=== PATIENT | female | born 1985 | race Caucasian/White ===

== ENCOUNTER 2020-01-09 13:23 | Emergency (ER) | payer BC ==
[~2020-01-09] VITALS: Ht 167.6 cm; Wt 86.0 kg
[2020-01-09 13:55] LABS: BASOPHILS # (AUTO) 0.1 X10'3 (0-0.2); BASOPHILS % (AUTO) 0.4 % (0-1); EOSINOPHILS # (AUTO) 0.2 X10'3 (0-0.9); EOSINOPHILS % (AUTO) 1.7 % (0-6); HEMATOCRIT 44.6 % (35.0-45.0); HEMOGLOBIN 14.8 g/dl (12.0-16.0); LYMPHOCYTES # (AUTO) 1.8 X10'3 (1.1-4.8); LYMPHOCYTES % (AUTO) 15.1 % (21-51); MEAN CORPUSCULAR HGB CONC 33.2 g/dL (33.0-36.5); MEAN CORPUSCULAR VOLUME 93.4 FL (78-98); MONOCYTES # (AUTO) 0.5 X10'3 (0-0.9); MONOCYTES % (AUTO) 4.6 % (2-12); NEUTROPHILS # (AUTO) 9.2 X10'3 (1.8-7.7); NEUTROPHILS % (AUTO) 78.2 % (42-75); PLATELET COUNT 299 X10'3 (140-440); RED BLOOD COUNT 4.77 X10'6 (4.20-5.60); RED CELL DISTRIBUTION WIDTH 12.6 % (11.5-14.5); WHITE BLOOD COUNT 11.8 X10'3 (4.5-11.0)
[2020-01-09 14:01] LABS: URINE HCG NEGATIVE (NEG)
[2020-01-09 14:06] LABS: CLARITY,URINE CLOUDY (Clear); COLOR,URINE ORANGE (Yellow)
[2020-01-09 14:11] LABS: ALANINE AMINOTRANSFERASE 36 U/L (12-78); ALBUMIN 4.1 G/DL (3.4-5.0); ALBUMIN/GLOBULIN RATIO 1.1 (1.1-1.5); ALKALINE PHOSPHATASE 44 IU/L (46-116); ANION GAP 10 (8-16); ASPARTATE AMINO TRANSFERASE 19 U/L (10-37); BILIRUBIN,TOTAL 0.4 MG/DL (0.1-1.0); BLOOD UREA NITROGEN 11 MG/DL (7-18); BUN/CREATININE RATIO 11.6 (6.6-38.0); CALCIUM 8.6 MG/DL (8.5-10.1); CHLORIDE 108 MMOL/L (99-107); CREATININE 0.95 MG/DL (0.40-0.90); GLUCOSE 130 MG/DL (70-104); LIPASE 98 U/L (73-393); POTASSIUM 3.7 MMOL/L (3.5-5.1); SODIUM 144 MMOL/L (135-145); TOTAL PROTEIN 7.9 G/DL (6.4-8.2); eGFR 67 ML/MIN
[2020-01-09 14:13] LABS: UA COLLECTION TYPE CLN CATCH MIDSTREAM
[2020-01-09 14:33] LABS: MUCUS STRANDS MODERATE /LPF (Neg); SQUAMOUS EPITHELIAL CELL,UR MANY /LPF (FEW)
[2020-01-09 14:36] LABS: BACTERIA,URINE FEW /HPF (Neg); RBC,URINE TNTC /HPF (0-2)
[2020-01-09 14:37] LABS: CAL OXALATE CRYSTALS 4+ /HPF (NEGATIVE)
--- NOTE | 2020-01-09 15:41 | NUR ---
pt is resting quietly on gurney, waiting to be evaluated by provider
[2020-01-09] MEDS ORDERED: ketorolac tromethamine 15mg/ml inj. IV ONE (16:10)
[2020-01-09] MEDS ORDERED: ondansetron/PF 4mg/2ml inj IV ONE ×2 (16:10→17:40)
[2020-01-09] MEDS ORDERED: morphine 2 MG/ML inj. syringe IV ONE (17:40)
[2020-01-09] MEDS ORDERED: normal saline 1000ML IV soln IVB ONE (17:40)
[2020-01-09] MEDS ORDERED: HYDR-4383 PO (19:30)
[2020-01-09] MEDS ORDERED: FLO0.4C PO (19:30)
[2020-01-09] MEDS ORDERED: ONDA4TAB6 PO (19:30)
[2020-01-09 19:55] VITALS: BP 115/67
== END 2020-01-09 19:57 | disposition home or self-care (01) ==
LOC: ER 13:24
DX: N20.0 Calculus of kidney (principal); R10.32 Left lower quadrant pain; R11.10 Vomiting, unspecified; F17.200 Nicotine dependence, unspecified, uncomplicated; Z72.89 Other problems related to lifestyle
CPT/HCPCS: 36415; 74176; 80053; 81001; 81025; 83690; 85025; 87088; 96361; 96374; 96375; 96376; 99285; J1885; J2270; J2405; J7030